=== PATIENT | female | born 1940 | race Caucasian/White ===

== ENCOUNTER 2016-06-28 07:54 | Day surgery (SDC) | payer MEDICARE, OTHER ==
[~2016-06-28 07:54] MED LIST: ALENDRONATE70 MG PO; ALL DAY ALLG10 MG PO; ALL DAY10 MG PO; ALLEGRA-D 1212 HOUR PO; AMANTADINE100 M1 PO; AMANTADINE100 MG PO; ASA LO-DOSE81 MG OR; ATENOL/CHLOR1 TA2 PO; ATENOLOL25 MG OR; AUGMENTIN500TAB PO; CALCIUM/D250 MG PO; CETIRIZINE10 MG PO; CIPROFLOXACIN250 MG PO; CIPROFLOXACN500 MG PO; DETROL LA4 MG PO; DITROPAN OR; DITROPAN XL5 MG PO; EQL POTASSIUM595 MG PO; FISH OIL1000 MG PO; FLEXERIL10 MG PO; FLONASE SPRAY50 MC1; FLUARIX QUADRIV1 IN1 IM; FLUZONE SPLT1 M1 IM; K-DUR/KLOR-CON10 MEQ PO; LEVAQUIN500 MG PO; MEDDOSEPAK PO; METOPROLOL TART50 MG PO; MIRALAX3350 N1 PO; MULTI VIT PO; OXYBUTYNIN5 M1 PO; POTASSIUM99 MG PO; ROBITUSSIN AC10 ML PO; SM STOOL SOFTE PO; VITAMIN PO; ZPAK PO; ZYRTEC10 MG PO
[2016-06-28 10:40] VITALS: BP 120/70
== END 2016-06-28 10:40 | disposition home or self-care (01) ==
LOC: ENDO 07:54 → ORM 11:00 → ENDO 11:00
PROVIDERS: ATTEND Internal Medicine Gastroenterology
PROC: 0DBP8ZX Excision of Rectum, Via Natural or Artificial Opening Endoscopic, Diagnostic (ICD-10-PCS; principal; 2016-06-28)
PROC: 0DBN8ZX Excision of Sigmoid Colon, Via Natural or Artificial Opening Endoscopic, Diagnostic (ICD-10-PCS; 2016-06-28)
DX: Z12.11 Encounter for screening for malignant neoplasm of colon (principal); D12.5 Benign neoplasm of sigmoid colon; K62.1 Rectal polyp; K64.4 Residual hemorrhoidal skin tags; K57.30 Diverticulosis of large intestine without perforation or abscess without bleeding; K64.8 Other hemorrhoids; I10 Essential (primary) hypertension; K21.9 Gastro-esophageal reflux disease without esophagitis; Z86.010 Personal history of colon polyps; Z79.899 Other long term (current) drug therapy

== ENCOUNTER 2017-01-24 06:56 | Day surgery (SDC) | payer MEDICARE, OTHER ==
[~2017-01-24] VITALS: Ht 162.6 cm; Wt 86.2 kg
[~2017-01-24 06:56] MED LIST changes: +PRESERVISION AREDS PO
[2017-01-24 09:40] VITALS: BP 112/56
== END 2017-01-24 09:55 | disposition home or self-care (01) ==
LOC: ENDO 06:56 → ORM 10:00 → ENDO 10:00
PROVIDERS: ATTEND Internal Medicine Gastroenterology
PROC: 0DBK8ZX Excision of Ascending Colon, Via Natural or Artificial Opening Endoscopic, Diagnostic (ICD-10-PCS; principal; 2017-01-24)
PROC: 0DBN8ZX Excision of Sigmoid Colon, Via Natural or Artificial Opening Endoscopic, Diagnostic (ICD-10-PCS; 2017-01-24)
PROC: 0DBP8ZX Excision of Rectum, Via Natural or Artificial Opening Endoscopic, Diagnostic (ICD-10-PCS; 2017-01-24)
DX: K57.30 Diverticulosis of large intestine without perforation or abscess without bleeding (principal); K64.4 Residual hemorrhoidal skin tags; D12.2 Benign neoplasm of ascending colon; D12.5 Benign neoplasm of sigmoid colon; K62.1 Rectal polyp; K64.8 Other hemorrhoids; K21.9 Gastro-esophageal reflux disease without esophagitis; I10 Essential (primary) hypertension; Z86.010 Personal history of colon polyps